=== PATIENT | male | born 1955 | race Caucasian/White ===

== ENCOUNTER 2018-01-15 17:13 | Emergency (ER) | payer OTHER ==
[~2018-01-15] VITALS: Ht 193 cm; Wt 109.0 kg
[~2018-01-15 17:13] MED LIST: ATOR40TA16 PO; BENETAB PO; CENTTAB PO; ISOS30TA3 PO; LEVO-154 PO; LISI-515 PO; LOTE0.5S EACH EYE; METF500T PO; METO1TAB43 PO; NITR0.4S SL; SERT25TA83 PO; VITA100064 PO; WARF-21 PO; [UNRECOGNIZED DRUG - SUPPLY] TD
[2018-01-15 17:14] VITALS: BP 150/82; PULSE 79; RESP 18; TEMP 98.6; O2SAT 98
--- NOTE | 2018-01-15 18:50 | RADRPT ---
EXAM DATE/TIME: 01/15/2018 17:52 [place] COMPARISON: No previous studies available for comparison. INDICATIONS : Patient complains of right ankle pain. No known injury. MEDICAL HISTORY : None. SURGICAL HISTORY : None. ENCOUNTER: Initial ACUITY: 1 day PAIN SCORE: 7/10 LOCATION: Right Ankle FINDINGS: Two view examination was performed of the right ankle. The bony structures are in normal alignment. No evidence of fracture, dislocation, or soft tissue swelling. There is osteophyte formation and virgil int space narrowing particularly along the lateral ankle. Mild calcaneal spurring. No radiopaque fore ign bodies are seen. Bony mineralization is normal. CONCLUSION: 1. Mild to moderate presumably degenerative osteoarthritis particularly along the lateral ankle. 2. Mild calcaneal spurring. Ang Nj MD on January 15, 2018 at 18:48 Board Certified Radiologist. This report was verified electronically.
[2018-01-15] MEDS ORDERED: TYLETAB34 PO (19:25)
--- NOTE | 2018-01-15 19:34 | PD ---
HPI Chief Complaint: Injury Time Seen by Provider: 19:08 Travel History International Travel<30 days: No Contact w/Intl Traveler<30days: No Traveled to known affect area: No History of Present Illness HPI 62-year-old male that presents to the ED for evaluation of right calf pain. Per patient he was walking when he felt a sharp pain in his calf. He was able to walk but with a limp. He states that she's never had this happened before he wasn't sure what happened. He denies any previous injury to that leg. He states that the pain is mainly to the cough. Denies any recent travel. Able to move the foot fully. Denies any numbness, tingling, weakness. Patient was medically concerned because he is never had this before. He chronically takes Coumadin secondary to having a mechanical valve. States that his pain currently 7 out of 10. He is able to ambulate with some discomfort. 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 PFSH Past Medical History Hx Anticoagulant Therapy: Yes Heart Rhythm Problems: No Cardiac Catheterization: Yes Cardiovascular Problems: Yes High Cholesterol: Yes Chest Pain: Yes Congestive Heart Failure: No Coronary Artery Disease: Yes Diabetes: No Hypertension: Yes Thyroid Disease: Yes Triglycerides - High: Yes Past Surgical History Cardiac Surgery: Yes (MECHANICAL AORTIC VALVE) Coronary Artery Bypass Graft: Yes Neurologic Surgery: Yes (BACK) Social History Alcohol Use: Yes (OCCASIONALLY) Tobacco Use: No Substance Use: No Allergies-Medications (Allergen,Severity, Reaction): Coded Allergies: No Known Allergies (Unverified Adverse Reaction, Unknown, 01/15/18) Reported Meds & Prescriptions Reported Meds & Active Scripts Active Tylenol-Codeine #3 (Acetaminophen-Codeine) 300-30 mg Tab 1 Tab PO Q6H PRN Lisinopril 20 Mg Tab 20 Mg PO DAILY Sertraline (Sertraline HCl) 25 Mg Tab 25 Mg PO DAILY Levothyroxine (Levothyroxine Sodium) 175 Mcg Tab 175 Mcg PO DAILY Metformin (Metformin HCl) 500 Mg Tab 500 Mg PO DAILY With a meal Isosorbide Mononitrate ER (Isosorbide Mononitrate) 30 Mg Edwin 30 Mg PO DAILY Nitrostat SL (Nitroglycerin) 0.4 Mg Subl 0.4 Mg SL DIRECTED PRN ONE TABLET UNDER THE TONGUE NEEDED FOR CHEST PAIN, Metoprolol Succinate ER 24 HR (Metoprolol Succinate) 100 Mg Tab 100 Mg PO DAILY Atorvastatin (Atorvastatin Calcium) 40 Mg Tab 40 Mg PO HS [AFO Left] 1 Units TD DAILY Reported Warfarin 7.5 Mg Tab 7.5 Mg PO DAILY Benefiber (Wheat Dextrin) 1 Tab 1 Tab PO DAILY Lotemax Opth Drops (Loteprednol Etabonate) 0.5 % Soln 1 Drop EACH EYE DAILY Centrum Silver (Multiple Vitamins W/ Minerals) 1 Tab 1 Tab PO DAILY Vitamin D3 (Cholecalciferol) 1,000 Unit Tab 1,000 Units PO DAILY Review of Systems Except as stated in HPI: all other systems reviewed are Neg Physical Exam Narrative GENERAL: SKIN: Warm and dry. HEAD: Atraumatic. Normocephalic. EYES: Pupils equal and round. No scleral icterus. No injection or drainage. ENT: No nasal bleeding or discharge. Mucous membranes pink and moist. NECK: Trachea midline. No JVD. CARDIOVASCULAR: Regular rate and rhythm. RESPIRATORY: No accessory muscle use. Clear to auscultation. Breath sounds equal bilaterally. GASTROINTESTINAL: Abdomen soft, non-tender, nondistended. Hepatic and splenic margins not palpable. MUSCULOSKELETAL: Extremities without clubbing, cyanosis, or edema. No obvious deformities. Patient has full range of motion of the right foot. Able to plantarflex and dorsiflex with minimal discomfort. Able to brent and invert foot. Patient does have tenderness to palpation on the cough. Achilles tendon itself appears to be intact on palpation and calf squeeze appears to be negative for tear. NEUROLOGICAL: Awake and alert. No obvious cranial nerve deficits. Motor grossly within normal limits. Five out of 5 muscle strength in the arms and legs. Normal speech. PSYCHIATRIC: Appropriate mood and affect; insight and judgment normal. Data Data Last Documented VS Vital Signs Date Time Temp Pulse Resp B/P (MAP) Pulse Ox O2 Delivery O2 Flow Rate FiO2 01/15/18 17:14 98.6 79 18 150/82 (104) 98 Room Air Orders Orders Ankle, Limited (Ap&Lat) (01/15/18 ) Splint Or Brace Apply/Monitor (01/15/18 19:25) MDM Medical Decision Making Medical Screen Exam Complete: Yes Emergency Medical Condition: Yes Medical Record Reviewed: Yes Interpretation(s) Last Impressions Ankle X-Ray 01/15/18 0000 Signed Impressions: Service Date/Time: Monday, January 15, 2018 17:52 - CONCLUSION: 1. Mild to moderate presumably degenerative osteoarthritis particularly along the lateral ankle. 2. Mild calcaneal spurring. Ang Nj MD Differential Diagnosis Calf pain versus Achilles tear versus gastrocnemius tear versus muscle tear versus tendon tear Narrative Course 62-year-old male that presents to the ED for evaluation of calf pain. Patient was properly examined and was found to have signs and symptoms consistent appears to be but appears to be muscle tear. Physical exam is reassuring. This does not appear to be an Achilles tendon tear as patient is able to do the Calhoun's test with no abnormalities. Patient himself is able to move the foot fully with no sign of deformity or deficit. Patient has pain to the cough. Patient will be put on a brace and given a prescription for Tylenol 3. Patient was told to follow closely with ED for further eval. Follow up with PCP. See ED worsening symptoms. Ice or warm compresses. Diagnosis Primary Impression: Gastrocnemius tear Qualified Codes: S86.111A - Strain of other muscle(s) and tendon(s) of posterior muscle group at lower leg level, right leg, initial encounter Patient Instructions: General Instructions Additional Instructions: Take medications as prescribed. Follow-up with PCP next week for further eval and treatment as needed. See ED for any worsening symptoms. Do not drink or drive while taking pain medication. Apply ice or heat as needed for pain Med/Other Pt SpecificInfo: Prescription(s) given Scripts Acetaminophen-Codeine (Tylenol-Codeine #3) 300-30 mg Tab 1 TAB PO Q6H Y for PAIN, #14 TAB 0 Refills Prov: Jt Davis MD 01/15/18 Disposition: 01 DISCHARGE HOME Condition: Stable Krzysztof Rhodes Jan 15, 2018 19:34
== END 2018-01-15 21:28 | disposition home or self-care (01) ==
LOC: NEPE 17:13
DX: S86.111A Strain of other muscle(s) and tendon(s) of posterior muscle group at lower leg level, right leg, initial encounter (principal); R05 Cough; E78.00 Pure hypercholesterolemia, unspecified; I25.10 Atherosclerotic heart disease of native coronary artery without angina pectoris; I10 Essential (primary) hypertension; E07.9 Disorder of thyroid, unspecified; E78.1 Pure hyperglyceridemia; Y93.01 Activity, walking, marching and hiking; Z79.01 Long term (current) use of anticoagulants
CPT/HCPCS: 73600; 99283; L2114